=== PATIENT | male | born 1955 | race Caucasian/White ===

== ENCOUNTER 2020-06-14 01:48 | Inpatient (IN) | payer OTHER ==
[~2020-06-14] VITALS: Ht 177.8 cm; Wt 87.6 kg
[~2020-06-14 01:48] MED LIST: HYDACE5 PO; IBUP400; IBUP800 PO; NAPR500 PO; OXYACE5T PO; RXCLIN PO; TAMS.4ER PO; Zithromax200 MG/5 M PO; Zithromax250 MG PO
[2020-06-14 02:20] LABS: Hematocrit 32.8 % (37.0-53.0); Hemoglobin 9.7 g/dL (13.5-17.5); Mean Corpuscular HGB 24.9 pg (26.0-34.0); Mean Corpuscular HGB Conc 29.6 g/dL (31.5-36.5); Mean Corpuscular Volume 84 fL (80-100); Mean Platelet Volume 10.5 fL (9.1-12.4); Platelet Count 204 K/mm3 (150-400); RDW Coefficient Variation 14.8 % (11.7-14.2); RDW Standard Deviation 45.6 fL (35.1-46.3); White Blood Cell Count 7.78 K/mm3 (4.00-11.30)
[2020-06-14 02:53] LABS: Alanine Aminotransfer (ALT/SGP 49 U/L (12-78); Albumin, Blood 2.3 g/dL (3.4-5.0); Albumin/Globulin Ratio 0.3 (0.8-1.8); Alk Phos 92 U/L (50-136); Anion Gap 8 mmol/L (6-16); Aspartate Aminotrans (AST/SGOT 97 U/L (12-37); Bilirubin, Total 0.6 mg/dL (0.1-1.0); Blood Urea Nitrogen 17 mg/dL (8-24); Bun/Creatinine Ratio 15.9 (12.0-20.0); CHOL/HDL RATIO 4.7; CO2, Blood 27 mmol/L (21-32); Calcium, Blood 8.3 mg/dL (8.5-10.1); Chloride, Blood 105 mmol/L (98-108); Cholesterol 109 mg/dL (50-200); Creatinine, Blood 1.07 mg/dL (0.60-1.20); Globulin, Blood 6.8 g/dL (2.2-4.0); Glomerular Filtration Rate >60 (60-); Glucose, Blood 122 mg/dL (70-99); HDL Cholesterol 23 mg/dL (>39); Low Density Lipoprotein Chol 68 mg/dL (0-110); Magnesium, Blood 1.8 mg/dL (1.6-2.4); Potassium, Blood 3.1 mmol/L (3.5-5.5); Sodium, Blood 140 mmol/L (136-145); Total Protein, Blood 9.1 g/dL (6.4-8.2); Triglycerides 90 mg/dL (30-160); Very Low Density Lipoprot Chol 18 mg/dL (6-32)
--- NOTE | 2020-06-14 05:55 | NUR ---
SUMMARY RECIEVED REPORT FROM DICKSON BECKER. PATIENT TRANSFERED FROM STRETCHER TO BED INDEPENDENTLY. 02 SATS >90% ON 3L NC, SOB WITH EXERTION. PATIENT STATES HE IS ANXIOUS AND HAS TO SIT ON THE SIDE OF THE BED TO CATCH HIS BREATH. FAN WAS PROVIDED TO HELP PATIENT FEEL LESS ANXIOUS. PATIENT WAS ORIENTED TO ROOM AND UNIT. PATIENT IS ALERT AND ORIENTED. DENIES CP AT THIS TIME. EXPLAINED TO THE PARTIENT THAT HE IS NPO DUE TO PROCEDURE TODAY AND THAT HE IS TO STAY IN BED AND NOT EXERT HIMSELF BECAUSE OF OXYGEN REQUIREMENTS. USES URINAL INDEPENDENTLY. PATIENT IS CURRENTLY SITTING IN BED WATCHING TV. CALL LIGHT IS IN REACH, VSS, WILL CONTINUE TO MONITOR.
[2020-06-14 12:11] LABS: Hematocrit 28.9 % (37.0-53.0); Hemoglobin 8.5 g/dL (13.5-17.5)
[2020-06-14 12:45] LABS: Percent Saturation 17.7 % (20.0-50.0)
--- NOTE | 2020-06-14 15:13 | NUR ---
Spiritual care visit conducted. Patient is sitting up in bed and alert. Patient tells me about the events that led to his hospitalization and the plan of care going forward. Then patient shares about the of a close friend a few days ago and the tension he has had with the seller of an RV that he purchased and how these events may have contributed to his heart issues. He goes on to talk about his theory that sleeping in said RV in sub-freezing temperatures may have led to his pneumonia. Patient tells about his beliefs and his Adventist beliefs. I listen empathically, normalize patient's experience and provide spiritual guidance, grief support and prayer. Patient responds well and is tearful during the prayer. He shows signs of restored abebe. I will continue to remain available to patient and family.
--- NOTE | 2020-06-14 18:18 | NUR ---
SHIFT NOTE PT DENIES CP, REPORTS IMPROVED SOB AFTER LASIX ADMIN. PT WAS NOT TAKEN FOR ANGIO TODAY HE HAD BLOODY SPUTUM THIS AM, WILL OBSERVE TONIGHT AND REASSESS WITH DR MARIA IN THE AM FOR ANGIO. PT IS A/O X4, ANSWERING QUESITONS APPROPRIATELY IN FULL SENTENCES. PT DID REPORT SOME ANXIETY THIS AFTERNOON AND WAS TREATED WITH XANAX WHICH HAS RESOLVED ANIXETY. ECHO IS COMPLETE. PT WILL BE NPO AFTER MIDNIGHT FOR POSSIBLE ANGIO TOMORROW. PT IS RESTING WELL IN BED, SLEEPING, AWAKENS EASILY TO VERBAL STIMULI
[2020-06-15 01:09] LABS: BASOPHILS ABSOLUTE AUTO 0.04 K/mm3 (0.00-0.23); BASOPHILS PERCENT AUTO 1 % (0-2); EOSINOPHILS PERCENT AUTO 7 % (0-6); Hematocrit 27.6 % (37.0-53.0); Hemoglobin 8.2 g/dL (13.5-17.5); IMMATURE GRAN ABSOLUTE AUTO 0.03 K/mm3 (0.00-0.10); IMMATURE GRAN PERCENT AUTO 1 % (0-1); LYMPHOCYTES ABSOLUTE AUTO 1.92 K/mm3 (0.84-5.20); LYMPHOCYTES PERCENT AUTO 32 % (21-46); MONOCYTES ABSOLUTE AUTO 1.03 K/mm3 (0.16-1.47); MONOCYTES PERCENT AUTO 17 % (4-13); Mean Corpuscular HGB 24.8 pg (26.0-34.0); Mean Corpuscular HGB Conc 29.7 g/dL (31.5-36.5); Mean Corpuscular Volume 83 fL (80-100); Mean Platelet Volume 10.4 fL (9.1-12.4); NEUTROPHILS ABSOLUTE AUTO 2.56 K/mm3 (1.96-9.15); NEUTROPHILS PERCENT AUTO 43 % (41-73); Platelet Count 161 K/mm3 (150-400); RDW Standard Deviation 46.1 fL (35.1-46.3); Red Blood Cell Count 3.31 M/mm3 (4.30-5.90); White Blood Cell Count 5.98 K/mm3 (4.00-11.30)
[2020-06-15 01:24] LABS: Anion Gap 5 mmol/L (6-16); Blood Urea Nitrogen 20 mg/dL (8-24); Bun/Creatinine Ratio 16.7 (12.0-20.0); CO2, Blood 31 mmol/L (21-32); Calcium, Blood 7.8 mg/dL (8.5-10.1); Chloride, Blood 104 mmol/L (98-108); Glomerular Filtration Rate >60 (60-); Glucose, Blood 107 mg/dL (70-99); Sodium, Blood 140 mmol/L (136-145)
--- NOTE | 2020-06-15 04:06 | NUR ---
SUMMARY PATIENT IS ALERT, ORIENTED AND COOPERATIVE WITH CARE. DAUGHTER IN ROOM AT BEGINNING OF SHIFT. PATIENT GIVEN FOOD BEFORE MIDNIGHT. RESTING COMFORTABLY IN BED ALL NIGHT. 02 >95% ON 2L NC. CALLED DR ABOUT POTASSIUM AND SPUTUM LABS. PATIENT WAS MADE NPO AFTER MIDNIGHT. REPOSITIONS INDEPENDTLY IN BED. VSS, NO ACUTE CHANGES. PATIENT DENIES CP. CALL LIGHT IN REACH. WILL CONTINUE TO MONITOR.
--- NOTE | 2020-06-15 08:29 | NUR ---
PT TO AIRPORT SCREENER
--- NOTE | 2020-06-15 17:03 | NUR ---
PT IS PACKED FOR TRANSFER TO [facility], FAMILY IS UPDATED ABOUT ROOM ASSIGNMENT AT [facility]. [facility] WILL REMAIN INFUSING ON TRANSPORT. TR BAND IS FULLY RECOVERED WITH NO BLEEDING. Z-SUTURES ARE REMOVED FROM GROIN AND CHG DRESSING IS PLACED. TEGADERM TO WRIST SITE. PT BELONGINGS WITH DAUGHTER.
--- NOTE | 2020-06-15 17:23 | NUR ---
REPORT CALLED FOR PELON WHO WILL ASSUME PT CARE
== END 2020-06-15 17:15 | disposition short-term general hospital (02) | DRG 871 ==
LOC: ER 01:48 → PCU 03:17
PROVIDERS: Emergency Medicine; Internal Medicine; ADMIT Internal Medicine
PROC: 4A023N8 Measurement of Cardiac Sampling and Pressure, Bilateral, Percutaneous Approach (ICD-10-PCS; principal; 2020-06-15)
PROC: B2111ZZ Fluoroscopy of Multiple Coronary Arteries using Low Osmolar Contrast (ICD-10-PCS; 2020-06-15)
DX: A41.9 Sepsis, unspecified organism (principal); I21.4 Non-ST elevation (NSTEMI) myocardial infarction; J96.01 Acute respiratory failure with hypoxia; J18.9 Pneumonia, unspecified organism; R04.2 Hemoptysis; J44.0 Chronic obstructive pulmonary disease with (acute) lower respiratory infection; J44.1 Chronic obstructive pulmonary disease with (acute) exacerbation; F17.210 Nicotine dependence, cigarettes, uncomplicated; F15.10 Other stimulant abuse, uncomplicated; E87.6 Hypokalemia; D50.9 Iron deficiency anemia, unspecified; Z20.828 Contact with and (suspected) exposure to other viral communicable diseases; I25.10 Atherosclerotic heart disease of native coronary artery without angina pectoris; I34.0 Nonrheumatic mitral (valve) insufficiency; F41.9 Anxiety disorder, unspecified; I27.20 Pulmonary hypertension, unspecified
CPT/HCPCS: 36415; 71045; 76937; 80048; 80053; 80061; 82728; 83540; 83550; 83735; 83880; 84145; 84484; 85014; 85018; 85025; 85027; 85730; 86850; 86900; 86901; 87070; 87205; 93005; 93010; 93306; 93460; 96365; 96376; 99152; 99153; 99285-25; A9270; A9270-GY; C1769; C1894; J1644; J1940; J2250; J2543; J3010; J7040; J7050; Q9967; U0004

== ENCOUNTER 2020-07-20 00:41 | Day surgery (SDC) | payer OTHER | END 2020-07-20 23:36 | disposition home or self-care (01) | LOC: WOUND 00:41 | DX: L97.929 Non-pressure chronic ulcer of unspecified part of left lower leg with unspecified severity (principal); I87.2 Venous insufficiency (chronic) (peripheral); F17.200 Nicotine dependence, unspecified, uncomplicated; I10 Essential (primary) hypertension; L97.912 Non-pressure chronic ulcer of unspecified part of right lower leg with fat layer exposed | CPT/HCPCS: G0463 ==

== ENCOUNTER 2020-07-25 06:40 | Day surgery (SDC) | payer OTHER | END 2020-07-25 22:49 | disposition home or self-care (01) | LOC: WOUND 06:40 | DX: L97.822 Non-pressure chronic ulcer of other part of left lower leg with fat layer exposed (principal); L97.812 Non-pressure chronic ulcer of other part of right lower leg with fat layer exposed; I87.2 Venous insufficiency (chronic) (peripheral); D64.9 Anemia, unspecified; I25.10 Atherosclerotic heart disease of native coronary artery without angina pectoris; I10 Essential (primary) hypertension; I25.2 Old myocardial infarction; K74.60 Unspecified cirrhosis of liver; B19.20 Unspecified viral hepatitis C without hepatic coma; B15.9 Hepatitis A without hepatic coma; Z79.899 Other long term (current) drug therapy ==

== ENCOUNTER 2020-08-02 00:49 | Day surgery (SDC) | payer OTHER | END 2020-08-02 23:21 | disposition home or self-care (01) | LOC: WOUND 00:49 | DX: L97.929 Non-pressure chronic ulcer of unspecified part of left lower leg with unspecified severity (principal); L97.819 Non-pressure chronic ulcer of other part of right lower leg with unspecified severity; I87.2 Venous insufficiency (chronic) (peripheral); D64.9 Anemia, unspecified; I25.10 Atherosclerotic heart disease of native coronary artery without angina pectoris; I10 Essential (primary) hypertension; I25.2 Old myocardial infarction; K74.60 Unspecified cirrhosis of liver; Z20.828 Contact with and (suspected) exposure to other viral communicable diseases ==

== ENCOUNTER 2020-08-09 00:15 | Day surgery (SDC) | payer OTHER | END 2020-08-09 23:35 | disposition home or self-care (01) | LOC: WOUND 00:15 | DX: L97.929 Non-pressure chronic ulcer of unspecified part of left lower leg with unspecified severity (principal); L97.919 Non-pressure chronic ulcer of unspecified part of right lower leg with unspecified severity; I87.2 Venous insufficiency (chronic) (peripheral); D64.9 Anemia, unspecified; I25.2 Old myocardial infarction; I25.10 Atherosclerotic heart disease of native coronary artery without angina pectoris; K74.60 Unspecified cirrhosis of liver | CPT/HCPCS: G0463 ==

== ENCOUNTER 2020-08-12 16:49 | Inpatient (IN) | payer OTHER ==
[~2020-08-12] VITALS: Ht 167.6 cm; Wt 99.8 kg
[2020-08-12 17:30] LABS: BASOPHILS ABSOLUTE AUTO 0.05 K/mm3 (0.00-0.23); BASOPHILS PERCENT AUTO 1 % (0-2); EOSINOPHILS ABSOLUTE AUTO 0.24 K/mm3 (0.00-0.68); EOSINOPHILS PERCENT AUTO 2 % (0-6); IMMATURE GRAN ABSOLUTE AUTO 0.05 K/mm3 (0.00-0.10); IMMATURE GRAN PERCENT AUTO 1 % (0-1); LYMPHOCYTES ABSOLUTE AUTO 3.28 K/mm3 (0.84-5.20); LYMPHOCYTES PERCENT AUTO 30 % (21-46); MONOCYTES ABSOLUTE AUTO 2.13 K/mm3 (0.16-1.47); MONOCYTES PERCENT AUTO 19 % (4-13); Mean Corpuscular HGB 20.9 pg (26.0-34.0); Mean Corpuscular HGB Conc 27.5 g/dL (31.5-36.5); Mean Corpuscular Volume 76 fL (80-100); Mean Platelet Volume 11.9 fL (9.1-12.4); NEUTROPHILS ABSOLUTE AUTO 5.21 K/mm3 (1.96-9.15); NEUTROPHILS PERCENT AUTO 48 % (41-73); Platelet Count 129 K/mm3 (150-400); RDW Coefficient Variation 18.4 % (11.7-14.2); RDW Standard Deviation 50.4 fL (35.1-46.3); Red Blood Cell Count 2.25 M/mm3 (4.30-5.90); White Blood Cell Count 10.96 K/mm3 (4.00-11.30)
[2020-08-12 17:46] LABS: Hematocrit 17.1 % (37.0-53.0); Hemoglobin 4.7 g/dL (13.5-17.5)
[2020-08-12 17:56] LABS: Alanine Aminotransfer (ALT/SGP 34 U/L (12-78); Albumin, Blood 2.1 g/dL (3.4-5.0); Albumin/Globulin Ratio 0.4 (0.8-1.8); Alk Phos 47 U/L (50-136); Anion Gap 9 mmol/L (6-16); Aspartate Aminotrans (AST/SGOT 54 U/L (12-37); Bilirubin, Total 0.7 mg/dL (0.1-1.0); Blood Urea Nitrogen 26 mg/dL (8-24); Bun/Creatinine Ratio 32.2 (12.0-20.0); CO2, Blood 21 mmol/L (21-32); Calcium, Blood 7.4 mg/dL (8.5-10.1); Chloride, Blood 108 mmol/L (98-108); Creatinine, Blood 0.81 mg/dL (0.60-1.20); Globulin, Blood 5.1 g/dL (2.2-4.0); Glomerular Filtration Rate >60 (60-); Glucose, Blood 102 mg/dL (70-99); Potassium, Blood 4.5 mmol/L (3.5-5.5); Sodium, Blood 138 mmol/L (136-145); Total Protein, Blood 7.2 g/dL (6.4-8.2)
[2020-08-12 17:58] LABS: BASOPHILS ABSOLUTE MAN 0.21 K/mm3 (0.00-0.23); BASOPHILS PERCENT MAN 2 % (0-2); EOSINOPHILS ABSOLUTE MAN 0.32 K/mm3 (0.00-0.68); EOSINOPHILS PERCENT MAN 3 % (0-6); LYMPHOCYTES ABSOLUTE MAN 3.61 K/mm3 (0.84-5.20); LYMPHOCYTES PERCENT MAN 33 % (21-46); MONOCYTES ABSOLUTE MAN 0.54 K/mm3 (0.16-1.47); MONOCYTES PERCENT MAN 5 % (4-13); NEUTROPHILS ABSOLUTE MAN 6.24 K/mm3 (1.96-9.15); SEG NEUTROPHILS PERCENT MAN 57 % (41-73); TOTAL CELLS COUNTED 61
[2020-08-12 18:04] LABS: Troponin I 0.503 ng/mL (0.000-0.040)
[2020-08-12 18:44] LABS: Influenza A, PCR Negative (NEGATIVE); Influenza B, PCR Negative (NEGATIVE); Resp Syncytial Virus, PCR Negative (NEGATIVE); SARS-Cov-2 (COVID-19) PCR, MMC Negative (NEGATIVE)
[2020-08-12 19:54] LABS: Percent Saturation 7.8 % (20.0-50.0)
--- NOTE | 2020-08-12 21:30 | NUR ---
ADMIT NOTE PATIENT ARRIVED TO THE UNIT VERY ANXIOUS AND AGITATED. PATIENT WANTING TO GET UP AND GO TO THE BATHROOM TO HAVE A BM. PATIENT EDUCATED ON THE NEED TO REMAIN IN BED AT THIS TIME GIVEN HOW LOW HIS HGB IS. PATIENT OFFERED THE BED SOLORZANO BUT REFUSED. PATIENT STATED, "IF I CAN'T GET UP AND GO INTO THE BATHROOM THEN I'LL JUST HOLD IT." PATIENT AGAIN EDUCATED ON THE REASON FOR NOT BEING ABLE TO GET UP AND GO INTO THE BATHROOM AND PATIENT STATED, "I KNOW BUT IT'S ABOUT WHAT I WANT AND WHAT MAKES ME FEEL COMFORTABLE." PATIENT AGAIN STATED THAT IF HE COULD NOT GO ALL THE WAY INTO THE BATHROOM THEN HE WOULD JUST HOLD HIS BM. PATIENT COMPLAINING OF HAVING A "GASSY" FELLING IN HIS ABD. PATIENT HAD A COUGH/DRY HEAVING EPISODE THAT ALLOWED HIM TO BURP SEVERAL TIMES, PATIENT THEN REPORTED THAT HE FELT BETTER.
[2020-08-12] MEDS ORDERED: NITR.4SL SL (22:15)
[2020-08-12] MEDS ORDERED: ASPI81CH PO (22:15)
--- NOTE | 2020-08-12 22:15 | NUR ---
UPDATE PATIENT APPEARS TO BE SLEEPING, BREATHING EVEN AND UNLABORED. THE FIRST UNIT OF PRBC'S STARTED.
[2020-08-12] MEDS ORDERED: Lopressor 25 mg25 MG PO (22:19)
[2020-08-12] MEDS ORDERED: ATOR20 PO (22:24)
--- NOTE | 2020-08-12 23:40 | NUR ---
RED EMESIS RN ENTERED ROOM AND OBSERVED PATIENT SITTING UP AT THE EDGE OF THE BED. PATIENT REPORTS HE IS UNABLE TO VOID LAYING DOWN. PATIENT ABLE TO VOID WHILE SITTING AT THE EDGE OF THE BED. PATIENT THEN STARTED HAVING A COUGHING/DRY HEAVING EPISODE, PATIENT HAD SEVERAL OF THEM THROUGHOUT THE LAST SEVERAL HOURS. HOWEVER, THIS TIME PATIENT HAD DARK RED EMESIS THAT WAS MOSTLY CLOTS. PATIENT HAD APPROX 150 CC'S OUT. PATIENT ABLE TO LAY BACK IN THE BED WITH THE HEAD OF THE BED ELEVATED. VITAL SIGNS OBTAINED AND SUCTION SET UP. NO FURTHER EMESIS AT THIS TIME. CHARGE NURSE ARNAUD LOZANO IN TO HELP WITH CARE. CHARGE NURSE ARNAUD NOTIFIED DR HENDRICKS OF EMESIS WITH CLOTS AND PATIENT'S CURRENT VITAL SIGNS. ORDERS RECIEVED.
--- NOTE | 2020-08-12 23:55 | NUR ---
TRANSFER TO ICU REORT GIVEN TO ROSITA VILLANUEVA. PATIENT TRANSFERED OVER WITH CHARGE NURSE ARNAUD AND ICU CHARGE NURSE PEÑA. ALL BELONGING SENT WITH PATIENT. PATIENT'S DAUGHTER TRENA CALLED AND NOTIFIED OF TRANSFER PER PATIENT'S REQUEST.
--- NOTE | 2020-08-13 00:05 | NUR ---
ASSUMPTION OF CARE RECEIVED REPORT FROM KENAN BECKER ON PCU. PATIENT ARRIVED TO UNIT VIA BED AT 2349, 4 PERSON ASSIST TO ICU BED. PATIENT ALERT AND ORIENTED, MOANING, DENIES PAIN JUST STATES GENERAL DISCOMFORT. O2 SATS 100% ON RA, BLOOD PRESSURE AND HEART RATE STABLE. FIRST UNIT OF PRBC INFUSING. ORIENTED PATIENT TO ROOM AND CALL LIGHT. PATIENT VERBALIZED UNDERSTANDING OF FALL RISK. WILL REVIEW ORDERS AND TREAT PRESCRIBED.
[2020-08-13 00:10] LABS: International Normalized Ratio 1.73; Prothrombin Time Results 17.9 Sec (9.7-11.5)
[2020-08-13 03:17] LABS: BASOPHILS ABSOLUTE AUTO 0.07 K/mm3 (0.00-0.23); BASOPHILS PERCENT AUTO 1 % (0-2); EOSINOPHILS ABSOLUTE AUTO 0.05 K/mm3 (0.00-0.68); EOSINOPHILS PERCENT AUTO 0 % (0-6); Hemoglobin 6.2 g/dL (13.5-17.5); IMMATURE GRAN PERCENT AUTO 1 % (0-1); LYMPHOCYTES ABSOLUTE AUTO 2.85 K/mm3 (0.84-5.20); LYMPHOCYTES PERCENT AUTO 19 % (21-46); MONOCYTES ABSOLUTE AUTO 2.58 K/mm3 (0.16-1.47); MONOCYTES PERCENT AUTO 17 % (4-13); Mean Corpuscular HGB 23.1 pg (26.0-34.0); Mean Corpuscular HGB Conc 29.5 g/dL (31.5-36.5); Mean Corpuscular Volume 78 fL (80-100); NEUTROPHILS ABSOLUTE AUTO 9.39 K/mm3 (1.96-9.15); NEUTROPHILS PERCENT AUTO 62 % (41-73); Platelet Count 142 K/mm3 (150-400); RDW Standard Deviation 50.9 fL (35.1-46.3); Red Blood Cell Count 2.68 M/mm3 (4.30-5.90); White Blood Cell Count 15.04 K/mm3 (4.00-11.30)
[2020-08-13 03:38] LABS: Anion Gap 10 mmol/L (6-16); Blood Urea Nitrogen 34 mg/dL (8-24); Bun/Creatinine Ratio 32.4 (12.0-20.0); CO2, Blood 22 mmol/L (21-32); Calcium, Blood 7.1 mg/dL (8.5-10.1); Chloride, Blood 108 mmol/L (98-108); Creatinine, Blood 1.05 mg/dL (0.60-1.20); Glomerular Filtration Rate >60 (60-); Glucose, Blood 96 mg/dL (70-99); Potassium, Blood 5.5 mmol/L (3.5-5.5); Sodium, Blood 140 mmol/L (136-145)
--- NOTE | 2020-08-13 03:53 | NUR ---
LABS REPORTED PATIENT'S H&H TO DR. MARTINEZ. RECIEVED ORDERS FOR ANOTHER LAB DRAW IN 3 HOURS. NO ORDERS TO TRANSFUSE AT THIS TIME. WILL MONITOR.
--- NOTE | 2020-08-13 04:00 | NUR ---
REASSESSMENT NO ACUTE CHANGES FROM PREVIOUS ASSESSMENT. PATIENT REMAINS IN BED, MOVING SELF AROUND, MOANING BUT DENIES PAIN OR DISCOMFORTS. STATES HE CANNOT PEE, RECEIVED AN ORDER FROM DR. MARTINEZ FOR A BUSTAMANTE CATHETER. WILL PLACE PER PATIENT'S CURRENT URINE RETENTION. BLADDER SCAN REVEALED GREATER THAN 200CC IN BLADDER. WILL CONTINUE TO MONITOR AND TREAT PRESCRIBED.
[2020-08-13 05:11] LABS: Source, Urine Catheter
[2020-08-13 05:17] LABS: Appearance, Urine Clear (Clear); Bilirubin, Urine Neg (Neg); Blood, Urine Neg (Neg); Color, Urine Yellow (P-Yellow); Glucose Qualitative, Urine Neg (Neg); Ketones, Urine 2+ (Neg); Leukocyte Esterase, Urine Neg (Neg); Nitrite, Urine Neg (Neg); Protein, Urine 1+ (Neg); Urobilinogen, Urine NORM (Normal)
--- NOTE | 2020-08-13 06:00 | NUR ---
SHIFT SUMMARY PATIENT RECEIVED 2 UNITS OF PRBC FOR ADMISSION H&H RESULTS. REPORTED MORNING H&H RESULTS TO DR. MARTINEZ PREVIOUSLY CHARTED, WILL CONTINUE TO TREND H&H. PATIENT MOANED, AND CALLED OUT THROUGH NIGHT. PATIENT WAS ORIENTED, BUT COULD NOT TELL RN WHY HE MOANED SO MUCH. "IT'S JUST A THING I DO". BUSTAMANTE WAS PLACED DUE TO PATIENT'S INABILITY TO URINATE AND REPORTED DISCOMFORT. PATIENT BEGAN TO MOAN AND CALL OUT AFTER BUSTAMANTE PLACED AND THRASH AROUND IN BED. AT 0530 PATIENT ROLLED ON LEFT SIDE, CLOSED EYES, AND BEGAN RESTING COMFORTABLY. VITALS STABLE CHARTED. TROPONIN ELEVATED AND REPORTED TO DR. MARTINEZ WELL. WILL CONTINUE TO MONITOR AND REPORT TO ONCOMING RN.
[2020-08-13 08:06] LABS: BASOPHILS ABSOLUTE AUTO 0.06 K/mm3 (0.00-0.23); BASOPHILS PERCENT AUTO 1 % (0-2); EOSINOPHILS ABSOLUTE AUTO 0.12 K/mm3 (0.00-0.68); EOSINOPHILS PERCENT AUTO 1 % (0-6); Hematocrit 19.5 % (37.0-53.0); IMMATURE GRAN ABSOLUTE AUTO 0.07 K/mm3 (0.00-0.10); IMMATURE GRAN PERCENT AUTO 1 % (0-1); LYMPHOCYTES ABSOLUTE AUTO 3.04 K/mm3 (0.84-5.20); LYMPHOCYTES PERCENT AUTO 24 % (21-46); MONOCYTES ABSOLUTE AUTO 2.05 K/mm3 (0.16-1.47); MONOCYTES PERCENT AUTO 16 % (4-13); Mean Corpuscular HGB 23.3 pg (26.0-34.0); Mean Corpuscular HGB Conc 29.7 g/dL (31.5-36.5); Mean Corpuscular Volume 78 fL (80-100); Mean Platelet Volume 11.9 fL (9.1-12.4); NEUTROPHILS ABSOLUTE AUTO 7.43 K/mm3 (1.96-9.15); NEUTROPHILS PERCENT AUTO 58 % (41-73); NRBC ABSOLUTE 0.02 K/mm3 (0.00-0.02); NRBC Auto 0.2 /100 WBC (0.0-0.2); Platelet Count 132 K/mm3 (150-400); RDW Coefficient Variation 17.9 % (11.7-14.2); Red Blood Cell Count 2.49 M/mm3 (4.30-5.90); White Blood Cell Count 12.77 K/mm3 (4.00-11.30)
[2020-08-13 08:15] LABS: Hemoglobin 5.8 g/dL (13.5-17.5)
--- NOTE | 2020-08-13 09:40 | NUR ---
PT RESTING IN BED. MOANS CONSISTANTLY. NOT SPECIFIC ABOUT REASON FOR MOANING. PT WILL STATE "I DON'T KNOW" THEN OTHER TIMES SAY "I FEEL GOOD". HYPOTENSIVE, PASSING GAS THAT SMELLS LIKE GI BLEED, HEMAGLOBIN DROPPED AGAIN. LET DR. LARA AND DR. FOSTER KNOW ABOUT THESE THINGS. ONE UNIT OF PRBC'S ORDERED. DR. LARA WILL BE BACK LATER TO TRY DIGITAL RECTAL EXAM FOR GUIAC. DR. REDDING CONSULTED BUT HE LOOKED AT [facility] AND STATES PT COULD BE SEEN OUTPT FOR THIS. NO GI ON IN TOWN AND MD'S AWARE.
--- NOTE | 2020-08-13 11:32 | NUR ---
PT CONTINUES TO MOAN CONSTANTLY. PT IS AGITATED. WILL NOT ANSWER ORIENTATION QUESTIONS JUST GETS ANGRY. PULLING AT BUSTAMANTE STATING "I HAVE TO PEE", WHEN REMINDED ABOUT BUSTAMANTE CATHETER PT YELLS "I KNOW! WHERE DO YOU WANT ME TO PEE!" CATHETER IS FLOWING WELL WITH GOOD OUTPUT. RESECURED TO LEG WITH STAT LOCK. PT WILL NOT LEAVE BP CUFF ON AND GETS AGITATED WHEN RN TRIES TO PUT IT BACK ON. INSISTED ARM BAND BE TAKEN OFF AND WHEN IT WAS REMOVED PT STATES "THANKS WOMAN". CONTINUING TO REORIENT TO HOSPITAL. UNIT OF PRBC'S ALMOST COMPLETE. BED ALARM ARMED FOR SAFETY.
--- NOTE | 2020-08-13 12:16 | NUR ---
PT PULLED IV'S OUT AND CONTINUES TO PULL TELE AND BP CUFF OFF DESPITE REDIRECTION. DR. FOSTER AND DR. LARA TO THE ROOM TO SEE PT. MD'S LOOKING INTO TRANSFERING PT FOR GI CONSULT. PLACED PT IN RESTRAINTS TO PROTECT LINES. PRBC'S COMPLETE AND 2 NEW IV'S PLACED. H&H AND TROPONIN DRAWN.
[2020-08-13 12:32] LABS: BASOPHILS ABSOLUTE AUTO 0.06 K/mm3 (0.00-0.23); BASOPHILS PERCENT AUTO 1 % (0-2); EOSINOPHILS ABSOLUTE AUTO 0.16 K/mm3 (0.00-0.68); EOSINOPHILS PERCENT AUTO 1 % (0-6); Hematocrit 20.9 % (37.0-53.0); Hemoglobin 6.4 g/dL (13.5-17.5); IMMATURE GRAN ABSOLUTE AUTO 0.09 K/mm3 (0.00-0.10); IMMATURE GRAN PERCENT AUTO 1 % (0-1); LYMPHOCYTES ABSOLUTE AUTO 3.08 K/mm3 (0.84-5.20); LYMPHOCYTES PERCENT AUTO 23 % (21-46); MONOCYTES ABSOLUTE AUTO 2.04 K/mm3 (0.16-1.47); MONOCYTES PERCENT AUTO 15 % (4-13); Mean Corpuscular HGB 23.9 pg (26.0-34.0); Mean Corpuscular HGB Conc 30.6 g/dL (31.5-36.5); Mean Corpuscular Volume 78 fL (80-100); NEUTROPHILS ABSOLUTE AUTO 7.85 K/mm3 (1.96-9.15); NEUTROPHILS PERCENT AUTO 59 % (41-73); NRBC ABSOLUTE 0.04 K/mm3 (0.00-0.02); NRBC Auto 0.3 /100 WBC (0.0-0.2); Platelet Count 136 K/mm3 (150-400); RDW Coefficient Variation 18.4 % (11.7-14.2); RDW Standard Deviation 51.2 fL (35.1-46.3); Red Blood Cell Count 2.68 M/mm3 (4.30-5.90); White Blood Cell Count 13.28 K/mm3 (4.00-11.30)
--- NOTE | 2020-08-13 13:06 | NUR ---
PT THRASHING LEGS IN BED, YELLING OUT. UNABLE TO REORIENT. PT STATES HE IS IN "[place] UNDER WATER" BILAT WRIST RESTRAINTS REMAIN IN PLACE, PT KICKING LEGS UP IN THE AIR AND OVER THE EDGE OF THE BED. CALL TO DR. LARA TO UPDATE ON PT BEHAVIOR AND MENTATION. PER DR. LARA PRECEDEX GTT ORDERED, AND STARTED PER ORDER TO TITRATE PER DR. URENA.
--- NOTE | 2020-08-13 15:20 | NUR ---
PT CONTINUES TO BE DISORIENTED. TRANSFERED TO [facility] FOR GI BLEED. PT WAS PLACED ON GURNEY HE HAD SBP IN THE 70'S. MD NOTIFIED AND ONE UNIT OF PRBC'S WAS STARTED AND TAKEN OVER BY EMS. SBP WAS 90'S WHEN PT LEFT. CONTINUES ON PRECEDEX GTT FOR TRIP TO [facility] DUE TO PT THRASHING IN BED AND WILL REMOVE VITAL LINES. REPORT WAS GIVEN TO BIANKA BECKER WHO WILL ASSUME CARE AT [facility]. FAMILY WAS UPDATED BY DR. FOSTER. BELONGINGS SENT WITH PT.
== END 2020-08-13 15:27 | disposition short-term general hospital (02) | DRG 812 ==
LOC: ER 16:49 → PCU 19:59 → ICUW 23:50
PROVIDERS: Emergency Medicine; Internal Medicine; Student in an Organized Health Care Education/Training Program; ADMIT Hospitalist
PROC: 30233N1 Transfusion of Nonautologous Red Blood Cells into Peripheral Vein, Percutaneous Approach (ICD-10-PCS; principal; 2020-08-12)
DX: D64.9 Anemia, unspecified (principal); K92.2 Gastrointestinal hemorrhage, unspecified; J90 Pleural effusion, not elsewhere classified; I25.10 Atherosclerotic heart disease of native coronary artery without angina pectoris; I34.0 Nonrheumatic mitral (valve) insufficiency; Z20.828 Contact with and (suspected) exposure to other viral communicable diseases; R79.89 Other specified abnormal findings of blood chemistry; F17.210 Nicotine dependence, cigarettes, uncomplicated; I25.2 Old myocardial infarction
CPT/HCPCS: 0241U; 36415; 36430; 51702; 71045; 80048; 80053; 82272; 82607; 82746; 83540; 83550; 83880; 84484; 85025; 85610; 85730; 86850; 86900; 86901; 86923; 99285-25; J0696; J1940; J2354; J2405; J7030; J7040; J7050; P9016

== ENCOUNTER → 2023-06-11 | Outpatient (CLI) | payer MEDICARE, OTHER ==
[~2023-06-11] MED LIST changes: +ASPI81CH PO; +ATOR20 PO; +Lopressor 25 mg25 MG PO; +NITR.4SL SL
[2023-06-11 17:06] LABS: LDL/HDL RATIO 0.9
[2023-06-11 17:07] LABS: Alanine Aminotransfer (ALT/SGP 102 U/L (12-78); Albumin, Blood 2.8 g/dL (3.4-5.0); Anion Gap 4 mmol/L (6-16); Aspartate Aminotrans (AST/SGOT 153 U/L (12-37); Blood Urea Nitrogen 11 mg/dL (8-24); CHOL/HDL RATIO 2.1; CO2, Blood 28 mmol/L (21-32); Chloride, Blood 105 mmol/L (98-108); Cholesterol 66 mg/dL (50-200); Glucose, Blood 109 mg/dL (70-99); HDL Cholesterol 31 mg/dL (>39); Low Density Lipoprotein Chol 26 mg/dL (0-110); Potassium, Blood 3.8 mmol/L (3.5-5.5); Sodium, Blood 137 mmol/L (136-145); Triglycerides 43 mg/dL (30-160); Very Low Density Lipoprot Chol 8 mg/dL (6-32)
[2023-06-11 17:09] LABS: Albumin/Globulin Ratio 0.5 (0.8-1.8); Alk Phos 92 U/L (50-136); Bilirubin, Total 0.9 mg/dL (0.1-1.0); Bun/Creatinine Ratio 14.6 (12.0-20.0); Creatinine, Blood 0.76 mg/dL (0.60-1.20); Globulin, Blood 5.1 g/dL (2.2-4.0); Glomerular Filtration Rate 100 (60-); Total Protein, Blood 7.9 g/dL (6.4-8.2)
[2023-06-12 21:07] LABS: HIV AB/P24 AG SCREEN Non Reactive (Non Reactive)
[2023-06-14 18:08] LABS: HBSAG SCREEN Negative (Negative); HCV AB Reactive (Non Reactive); HCV LOG10 6.188 (.); HEP A AB, IGM Negative (Negative); HEP B CORE AB, TOT Negative (Negative); HEPATITIS C QUANTITATION 1540000 IU/mL (.)
[2023-06-14 19:08] LABS: HEPATITIS C QUANTITATION 1820000 IU/mL (.)
== END | disposition home or self-care (01) ==
LOC: LAB 10:00 → LAB SHORT 10:00
PROVIDERS: Family Medicine
DX: Z12.5 Encounter for screening for malignant neoplasm of prostate (principal); B18.2 Chronic viral hepatitis C; Z79.899 Other long term (current) drug therapy
CPT/HCPCS: 80053; 80061; 86704; 86708; 86803; 87340; 87389; 87522; G0103